=== PATIENT | female | born 1960 | race Caucasian/White ===

== ENCOUNTER 2017-01-17 17:54 | Emergency (ER) | payer OTHER ==
[~2017-01-17] VITALS: Ht 167.6 cm; Wt 137.0 kg
[2017-01-17 18:10] VITALS: BP 148/87
--- NOTE | 2017-01-17 18:30 | NUR ---
Patient ambulated to bed 3 with family. RN evaluating patient at bedside.
--- NOTE | 2017-01-17 18:35 | NUR ---
PT PRESENTS TO ER W/C/O DIZZINESS SINCE LAST NOC. HX DM, ASTHMA. . DENIES V/D; SKIN IS PINK/WARM/DRY; AAOX4 WITH EVEN AND STEADY GAIT; LUNGS CLEAR BL; HR EVEN AND REGULAR; PT DENIES ANY FEVER, CP, SOB, OR COUGH AT THIS TIME; PATIENT STATES PAIN OF 0/10 AT THIS TIME; VSS; PATIENT POSITIONED FOR COMFORT; HOB ELEVATED; BEDRAILS UP X2; BED DOWN. ER MD MADE AWARE OF PT STATUS.
[2017-01-17] MEDS ORDERED: MECLIZINE 25 MG TAB PO ONE (18:55)
[2017-01-17 19:15] VITALS: BP 134/84
== END 2017-01-17 19:15 | disposition home or self-care (01) ==
LOC: MED 17:54
DX: R42 Dizziness and giddiness (principal); J45.909 Unspecified asthma, uncomplicated; E11.9 Type 2 diabetes mellitus without complications; I10 Essential (primary) hypertension; Z90.710 Acquired absence of both cervix and uterus
CPT/HCPCS: 99283; J8597

== ENCOUNTER 2018-03-10 17:57 | Emergency (ER) | payer OTHER ==
[~2018-03-10] VITALS: Ht 170.2 cm; Wt 137.0 kg
[2018-03-10 18:21] VITALS: BP 165/85
== END 2018-03-10 18:57 | disposition left against medical advice (07) ==
LOC: MED 17:57
DX: M79.631 Pain in right forearm (principal); Z53.21 Procedure and treatment not carried out due to patient leaving prior to being seen by health care provider

== ENCOUNTER 2021-03-03 07:45 | Day surgery (SDC) | payer OTHER ==
[~2021-03-03] VITALS: Ht 170.2 cm; Wt 148.8 kg
[2021-03-03] MEDS ORDERED: fentaNYL citrate 0.05 MG/ML VIAL ONE (10:17)
[2021-03-03] MEDS ORDERED: MIDAZOLAM 5 MG/5 ML VIAL ONE (10:17)
[2021-03-03] MEDS ORDERED: LIDOCAINE VISCOUS 2% 20 ML UDC ONE (10:17)
[2021-03-03] MEDS ORDERED: MIDAZOLAM 2 MG/2 ML VIAL IVP ONE (12:00)
== END 2021-03-03 11:20 | disposition home or self-care (01) ==
LOC: MMU 07:45 → MDS 07:45
PROVIDERS: ATTEND Internal Medicine Gastroenterology
DX: R13.10 Dysphagia, unspecified (principal); K21.00 Gastro-esophageal reflux disease with esophagitis, without bleeding; I10 Essential (primary) hypertension; E11.9 Type 2 diabetes mellitus without complications; Z90.710 Acquired absence of both cervix and uterus; E78.00 Pure hypercholesterolemia, unspecified; E66.01 Morbid (severe) obesity due to excess calories; Z79.82 Long term (current) use of aspirin; Z79.4 Long term (current) use of insulin; Z79.899 Other long term (current) drug therapy; Z68.43 Body mass index [BMI] 50.0-59.9, adult
CPT/HCPCS: 43235; 82948; J2250; J3010